=== PATIENT | male | born 1945 | race Caucasian/White ===

== ENCOUNTER 2023-09-02 07:52 | Day surgery (SDC) | payer MEDICARE, BC ==
[~2023-09-02] VITALS: Ht 185.4 cm; Wt 107.7 kg
[~2023-09-02 07:52] MED LIST: CYAN100T9 PO; DICL75TA28 PO; FERR324T2 PO; MAGN400T56 PO; METF-1203 PO; MULT-215 PO; OLME20TA23 PO; PIOG30TA71 PO
[2023-09-02] MEDS ORDERED: FURO20TA4 PO (08:17)
[2023-09-02] MEDS ORDERED: normal saline 1000ml 1,000 ML IV PRN (08:20)
[2023-09-02] MEDS ORDERED: albumin 25% 100mL bottle x 1 IV PRN (08:20)
[2023-09-02 08:26] VITALS: BP 137/83; PULSE 85; RESP 16; TEMP 97.6; O2SAT 99
[2023-09-02 08:30] VITALS: RESP 16; O2SAT 99
[2023-09-02 09:40] VITALS: BP 137/83; PULSE 85; RESP 16; O2SAT 99
[2023-09-02 09:42] VITALS: BP 137/83; PULSE 85; RESP 16; O2SAT 99
== END 2023-09-02 09:42 | disposition home or self-care (01) ==
LOC: SSTAY O 07:52
PROVIDERS: ATTEND Radiology Vascular & Interventional Radiology
DX: R18.8 Other ascites (principal); Z53.8 Procedure and treatment not carried out for other reasons; I10 Essential (primary) hypertension; E11.9 Type 2 diabetes mellitus without complications; C25.9 Malignant neoplasm of pancreas, unspecified; Z98.890 Other specified postprocedural states; Z79.899 Other long term (current) drug therapy
CPT/HCPCS: 76705; A6258